=== PATIENT | male | born 1995 | race Caucasian/White ===

== ENCOUNTER 2016-12-08 10:22 | Emergency (ER) | payer BC ==
--- NOTE | 2016-12-08 11:15 | EDPHY ---
H & P Time Seen by Provider: 12/08/16 10:49 HPI/ROS: CHIEF COMPLAINT: Suture removal HISTORY OF PRESENT ILLNESS: 21-year-old male presents emergency department requesting suture removal from his right hand. [place] had surgery with plates placed to his 4th and 5th metacarpal. He was instructed to have his sutures removed today and a new splint placed. Patient reports his pain is controlled, denies numbness or tingling to his hand, denies other complaints. Patient has not established care with an orthopedist. Smoking Status: Never smoked Physical Exam: GEN: Awake, alert, oriented, no acute distress RESP: nl resp effort MSK: Right hand with range of motion not tested, sensation intact to light touch, cap refills less than 2 seconds SKIN: Surgical incision over 4th and 5th metacarpals with no erythema, no drainage, sutures intact, no fluctuance Constitutional: Initial Vital Signs Temperature (C) 36.8 C 12/08/16 10:25 Heart Rate 130 H 12/08/16 10:25 Respiratory Rate 18 12/08/16 10:25 Blood Pressure 117/60 12/08/16 10:25 O2 Sat (%) 96 12/08/16 10:25 O2 Delivery Mode Room Air Allergies/Adverse Reactions: No Known Allergies Allergy (Verified 12/08/16 10:24) Home Medications: Medication Instructions Recorded NK [No Known Home Meds] 12/08/16 MDM/Departure - MDM Procedures: Sutures removed to right hand without difficulty. A ulnar gutter splint to right hand was applied. After application of the splint, I returned and re-examined the patient. The splint was adequately immobilizing the joint. The patients circulation and sensation were intact distal to the splint. - Depart Disposition: Home, Routine, Self-Care Clinical Impression: Visit for wound check Condition: Good Instructions: Splint Care (ED) Additional Instructions: Keep your splint clean and dry until you follow up with orthopedist. Return to the emergency department for any fevers, chills, increased pain, redness in your fingers or arm, any other questions or concerns. Call Saturday morning to schedule appointment to see the orthopedist. Referrals: Eric Izaguirre MD [Medical Doctor] - As per Instructions (Orthopedist on-call)
[2016-12-08 11:45] VITALS: BP 111/69; PULSE 85; RESP 15; TEMP 98.8; O2SAT 97
== END 2016-12-08 11:43 | disposition home or self-care (01) ==
DX: Z48.01 Encounter for change or removal of surgical wound dressing (principal)

== ENCOUNTER → 2018-01-09 | Outpatient (CLI) | payer BC | LOC: FIMAGING 14:55 | PROVIDERS: ATTEND Physician Assistant | DX: N48.81 Thrombosis of superficial vein of penis (principal) ==